=== PATIENT | female | born 1970 | race Caucasian/White ===

== ENCOUNTER 2022-05-23 09:51 | Emergency (ER) | payer MEDICARE, OTHER ==
[~2022-05-23] VITALS: Ht 162.6 cm; Wt 82.5 kg
[2022-05-23] MEDS ORDERED: ADULT ASPIRIN R81 MG PO (10:14)
[2022-05-23] MEDS ORDERED: CARVEDILOL6.25 MG PO (10:14)
[2022-05-23] MEDS ORDERED: ATORVASTATIN CA20 MG PO (10:14)
[2022-05-23] MEDS ORDERED: ANTACID EXTRA300 MG PO (10:14)
[2022-05-23] MEDS ORDERED: NAC600 MG PO (10:15)
[2022-05-23] MEDS ORDERED: DAILY-VITE TA400 MC1 PO (10:15)
[2022-05-23] MEDS ORDERED: DIVALPROEX SOD250 MG PO (10:15)
[2022-05-23] MEDS ORDERED: LACTULOSE10 GM/151 PO (10:15)
[2022-05-23] MEDS ORDERED: QUETIAPINE FUM100 MG PO (10:16)
[2022-05-23] MEDS ORDERED: STIMULANT LAXA1 EACH PO (10:16)
[2022-05-23] MEDS ORDERED: SERTRALINE HCL100 MG PO (10:16)
[2022-05-23] MEDS ORDERED: NATURAL FIBER283 GM PO (10:16)
[2022-05-23] MEDS ORDERED: SERTRALINE HCL50 MG PO (10:17)
[2022-05-23] MEDS ORDERED: CHLORHEXIDINE473 ML MM (10:17)
[2022-05-23] MEDS ORDERED: CEPHALEXIN500 M1 PO (12:27)
== END 2022-05-23 13:03 | disposition home or self-care (01) ==
LOC: ED 09:51
DX: L03.115 Cellulitis of right lower limb (principal); Z88.8 Allergy status to other drugs, medicaments and biological substances; Z79.899 Other long term (current) drug therapy; Z79.82 Long term (current) use of aspirin
CPT/HCPCS: 36415; 80053; 83605; 85025; 85610; 93971; 96374; 99284-25; J0696

== ENCOUNTER 2022-05-28 10:27 | Emergency (ER) | payer MEDICARE, OTHER ==
[~2022-05-28] VITALS: Ht 162.6 cm; Wt 82.5 kg
[~2022-05-28 10:27] MED LIST: ADULT ASPIRIN R81 MG PO; ANTACID EXTRA300 MG PO; ATORVASTATIN CA20 MG PO; CARVEDILOL6.25 MG PO; CEPHALEXIN500 M1 PO; CHLORHEXIDINE473 ML MM; DAILY-VITE TA400 MC1 PO; DIVALPROEX SOD250 MG PO; LACTULOSE10 GM/151 PO; NAC600 MG PO; NATURAL FIBER283 GM PO; QUETIAPINE FUM100 MG PO; SERTRALINE HCL100 MG PO; SERTRALINE HCL50 MG PO; STIMULANT LAXA1 EACH PO
--- OUTSIDE RECORDS SUMMARY | 2022-05-28 10:38 | XMS ---
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 Stephanie VISIT COUNT (12 MO.) 2 [facility] TOTAL 2 NOTE: Visits indicate total known visits. ED/UCC VISIT TRACKING (12 MO.) 05/28/2022 10:28 [facility] [place] TYPE: Emergency COMPLAINT: - R LEG SWOLLEN/RED 05/23/2022 09:52 [facility] [place] TYPE: Emergency COMPLAINT: - R KNEE WOUND DIAGNOSES: - emt intermediate (current) use of aspirin - Cellulitis of right lower limb - Allergy status to other drugs, medicaments and biological substances - Other superintendent marine [employer] (current) drug therapy INPATIENT VISIT TRACKING (12 MO.) No inpatient visits to display in this time frame [email or web address]
== END 2022-05-28 13:44 | disposition home or self-care (01) ==
LOC: ED 10:27
DX: L03.115 Cellulitis of right lower limb (principal); G47.00 Insomnia, unspecified; Z88.8 Allergy status to other drugs, medicaments and biological substances; Z79.899 Other long term (current) drug therapy; Z79.82 Long term (current) use of aspirin
CPT/HCPCS: 36415; 80053; 85025; 93971; 96365; 99284-25; J0696

== ENCOUNTER 2023-07-12 20:47 | Emergency (ER) | payer MEDICARE, OTHER ==
[~2023-07-12] VITALS: Ht 162.6 cm; Wt 83.1 kg
[2023-07-12] MEDS ORDERED: DOXYCYCLINE HY100 MG PO (21:40)
[2023-07-12] MEDS ORDERED: DOXYCYCLINE HYCLATE 100 MG CAP PO ONE (21:45)
[2023-07-12 22:03] VITALS: BP 167/99
== END 2023-07-12 22:03 | disposition home or self-care (01) ==
LOC: ED 20:47
DX: L03.116 Cellulitis of left lower limb (principal); Z79.899 Other long term (current) drug therapy; Z79.82 Long term (current) use of aspirin

== ENCOUNTER 2023-11-10 16:44 | Emergency (ER) | payer MEDICARE, OTHER ==
[~2023-11-10] VITALS: Ht 162.6 cm; Wt 87.0 kg
[~2023-11-10 16:44] MED LIST changes: +DOXYCYCLINE HY100 MG PO
[2023-11-10] MEDS ORDERED: SODIUM CHLORIDE 0.9% 500 ML IV ONE (17:30)
[2023-11-10] MEDS ORDERED: CEFTRIAXONE/SODIUM CHLORIDE 1 GM/100 ML PIGGYBACK IV ONE (17:30)
[2023-11-10] MEDS ORDERED: VANCOMYCIN HCL/D5W 1 GM/270 ML PIGGYBACK KIT IV ONE (17:30)
[2023-11-10 17:32] LABS: HEMATOCRIT 36.5 % (35.0-50.0); HEMOGLOBIN 12.2 g/dL (12.0-18.0); MCH 29.1 (27-36); MCHC 33.3 g/dl (30-36); MCV 87.4 fl (81-99); PLATELET COUNT 192 K/uL (140-440); RBC 4.18 M/ul (4.3-5.7); RDW 14.1 (10.5-15.0)
[2023-11-10 17:40] LABS: ALBUMIN 3.3 g/dL (3.4-5.0); ALBUMIN/GLOBULIN RATIO 0.89 (1.1-2.4); ANION GAP 13.2 (7-21); BILIRUBIN, TOTAL 0.4 ng/dL (0.2-1.0); BUN/CREATININE RATIO 18.33 (6.0-28.6); CALCIUM 9.5 mg/dL (8.5-10.1); CREATININE, SERUM 0.6 mg/dL (0.55-1.02); POTASSIUM 4.2 mmol/L (3.5-5.1)
[2023-11-10 17:51] LABS: EOSINOPHILS, MANUAL DIFF 5; LYMPHOCYTES, MANUAL DIFF 24; MONOCYTES, MANUAL DIFF 4; NEUTROPHILS, MANUAL DIFF 67
[2023-11-10 18:45] LABS: ERYTHROCYTE SEDIMENTATION RATE 16
[2023-11-10] MEDS ORDERED: BACTRIM DS TAB1 EACH PO (19:39)
[2023-11-10 20:23] VITALS: BP 168/81
== END 2023-11-10 20:22 | disposition home or self-care (01) ==
LOC: ED 16:44
PROVIDERS: Emergency Medicine
DX: L03.116 Cellulitis of left lower limb (principal); L03.115 Cellulitis of right lower limb; Z88.8 Allergy status to other drugs, medicaments and biological substances; Z79.899 Other long term (current) drug therapy; Z79.82 Long term (current) use of aspirin
CPT/HCPCS: 80053; 85025; 85651; 86140; 93970; 96365; 96375; 99283-25; J0696; J3370; J7040